=== PATIENT | male | born 1955 | race Caucasian/White ===

== ENCOUNTER 2016-06-20 18:17 | Emergency (ER) | payer OTHER ==
--- NOTE | ~2016-06-20 | CR170 ---
[facility]. [facility] A Service [facility] RADIOLOGY TEXT RESULTS PATIENT: SIMBA PEREZ LOCATION: SED : 55 UNIT #: [id number] AGE: [address]: THEODORA VALDES SEX: M ORDER DR: [id number] [place] [id number] E MR#: [id number] Acc #: [id number] NAME: SIMBA PEREZ. : 1955 SEX: M STUDY DATE/TIME: 06/20/2016 18:33 UNIT: SED ROOM: STUDY DESCRIPTION: CR Knee 2 Views Rt Attending Physician: Theodora Valdes Ordering Physician: Theodora Valdes Primary Care Physician: Alessio Franklin M.D. MEDICAL IMAGING REPORT This report is preliminary unless electronic signature is present. EXAM Right knee. DATE OF EXAM 06/20/2016 HISTORY 60-year-old male with right knee pain and swelling for 3-4 days. COMPARISON None. FINDINGS 2 views of the right knee demonstrate no acute fracture or dislocation. There is a small joint effusion. Mild degenerative changes in the medial compartment of patellofemoral joint. Soft tissues are unremarkable. IMPRESSION 1. No acute fracture or dislocation. 2. Small joint effusion. 3. 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 Dictated by... Manjinder Mckeon M.D. THIS IS AN ELECTRONICALLY VERIFIED REPORT Manjinder Mckeon M.D. at 06/21/2016 4:27 PM KANNAN/pako TD: 06/20/2016 22:21 JOB #: [id number] [facility] A Service [facility] RADIOLOGY TEXT RESULTS PATIENT: SIMBA PEREZ LOCATION: SED : 55 UNIT #: [id number] AGE: [address]: THEODORA VALDES SEX: M ORDER DR: MEDICAL IMAGING REPORT Page 1 of 1
--- NOTE | ~2016-06-20 | US85 ---
[facility] A Service [facility] RADIOLOGY TEXT RESULTS PATIENT: SIMBA PEREZ LOCATION: SED : 55 UNIT #: [id number] AGE: [address]: THEODORA VALDES SEX: M ORDER DR: [id number] [place] [id number] E MR#: [id number] Acc #: [id number] NAME: SIMBA PEREZ. : 1955 SEX: M STUDY DATE/TIME: 06/20/2016 19:29 UNIT: SED ROOM: STUDY DESCRIPTION: [facility] Attending Physician: Theodora Valdes Referring Physician: Staff Doctor Not On Ordering Physician: Billy Rodrigues M.D. Primary Care Physician: Alessio Franklin M.D. MEDICAL IMAGING REPORT This report is preliminary unless electronic signature is present. EXAM Right lower extremity venous duplex ultrasound. DATE OF EXAM 06/20/2016 HISTORY 60-year-old male with right lower extremity pain for 4 days. COMPARISON None. FINDINGS Real-time rogers-scale, color Doppler and spectral Doppler analysis of the right lower extremity deep venous system demonstrates normal venous waveforms with normal compressibility and augmentation throughout. No evidence of right lower extremity deep venous thrombosis. IMPRESSION Negative for right lower extremity DVT. Dictated by... Manjinder Mckeon M.D. THIS IS AN ELECTRONICALLY VERIFIED REPORT Manjinder Mckeon M.D. at 06/21/2016 4:27 PM KANNAN/pako TD: 06/20/2016 23:24 JOB #: [id number] [facility] A Service [facility] RADIOLOGY TEXT RESULTS PATIENT: SIMBA PEREZ LOCATION: SED : 55 UNIT #: [id number] AGE: [address]: THEODORA VALDES SEX: M ORDER DR: MEDICAL IMAGING REPORT Page 1 of 1
[~2016-06-20 18:17] MED LIST: ALBUTEROL INHALER; ALPRAZOLAM PO; BLOOD PRESSURE MED; BP MED; CLARITIN10 M2 PO; FLONASE ALLERG9.9 ML; KETOPROFEN PO; KLONOPIN1 MG PO; LANTUS100 U/ML SUBQ; MEDROL DOSEPAK4 MG PO; NEURONTIN100 MG PO; NORCO 10-325 TA1 TAB PO; PROVENTIL17 GM
[2016-06-20 18:26] LABS: BASOPHIL# 0.1 X10e3 (0-0.3); BASOPHIL% 0.6 % (0-2.5); EOSINOPHIL# 0.1 X10e3 (0-0.7); EOSINOPHIL% 0.7 % (0.0-7.0); HEMATOCRIT 37.8 % (38.0-50.0); HEMOGLOBIN 13.1 gm/dL (13.0-16.0); LYMPHOCYTE# 0.5 X10e3 (1.0-3.5); LYMPHOCYTE% 4.3 % (17.0-45.0); MEAN CELL VOLUME 88.7 FL (83-96); MEAN CORPUSCULAR HEMOGLOBIN 30.8 PG (28-34); MEAN CORPUSCULAR HGB CONC 34.7 g/dL (30-36); MEAN PLATELET VOLUME 7.4 FL (6.5-11.5); MONOCYTE% 9.3 % (3.0-12.0); NEUTROPHIL# 9.4 X10e3 (1.5-7.1); NEUTROPHIL% 85.1 % (40-75); PLATELET COUNT 155 X10e3 (140-420); RED BLOOD COUNT 4.26 X10e (3.90-5.60); RED CELL DISTRIBUTION WIDTH 14.4 % (11.0-15.5); WHITE BLOOD COUNT 11.1 X10e3 (4.0-10.5)
[2016-06-20 18:33] LABS: DIFF IND NO
[2016-06-20 18:41] LABS: INR 1.3
[2016-06-20 18:49] LABS: PARTIAL THROMBOPLASTIN TIME 30.7 SECONDS (25.6-38.1)
[2016-06-20 18:50] LABS: ALBUMIN SERUM 2.3 g/dL (3.5-5.0); BILIRUBIN, DIRECT 2.8 mg/dL (0.0-0.2); BILIRUBIN,INDIRECT 2.1 mg/dL (0.0-0.9); BILIRUBIN,TOTAL 4.9 mg/dL (0.2-2.0); BUN/CREATININE RATIO 18.88; CALCIUM SERUM 7.9 mg/dL (8.4-10.2); CREATININE SERUM 0.9 mg/dL (0.6-1.4); GLOM FILT RATE Estimated 92.5 mL/min (>60); POTASSIUM 3.9 mmol/L (3.5-5.1); PROTEIN TOTAL SERUM 7.3 g/dL (6.0-8.3)
[2016-06-20 18:58] LABS: URIC ACID 2.9 mg/dL (2.6-7.2)
== END 2016-06-20 20:18 | disposition home or self-care (01) ==
LOC: SED 18:17
PROVIDERS: Physician Assistant
DX: M25.561 Pain in right knee (principal); E11.9 Type 2 diabetes mellitus without complications; Z79.4 Long term (current) use of insulin
CPT/HCPCS: 29530; 73560; 80048; 80076; 84550; 85025; 85610; 85730; 93971; 99284

== ENCOUNTER → 2016-11-04 | Outpatient (CLI) | payer OTHER ==
--- NOTE | ~2016-11-04 | XA170 ---
[facility] A Service of [facility] RADIOLOGY TEXT RESULTS PATIENT: SIMBA PEREZ LOCATION: [facility] : 55 UNIT #: [id number] AGE: [address]: Ayden Chin MD SEX: M ORDER DR: [id number] [facility] [address] [place], [place] [address] [id number] MR#: [id number] Acc #: [id number] NAME: SIMBA PEREZ. : 1955 SEX: M STUDY DATE/TIME: 11/04/2016 14:40 UNIT: [facility] ROOM: STUDY DESCRIPTION: XA Paracentesis W Image Attending Physician: Ayden Chin III, M.D. Referring Physician: Ayden Chin III, M.D. Ordering Physician: Ayden Chin III, M.D. Primary Care Physician: Alessio Franklin M.D. MEDICAL IMAGING REPORT This report is preliminary unless electronic signature is present EXAM Ultrasound guided paracentesis INDICATION Ascites. PROCEDURE The risks, benefits, and alternatives to the procedure were explained to the patient, and signed, informed consent was obtained. Patient was placed supine on the stretcher. Preliminary ultrasound of the abdomen was performed which demonstrated large-volume ascites; this image was permanently saved. Overlying skin was marked, patient was prepped and draped in the usual sterile fashion. Time-out was performed, as per protocol. Skin and subcutaneous tissues were anesthetized with buffered lidocaine, Yueh catheter was advanced into the fluid with aspiration of serous material. Catheter was hooked to suction tubing and there was evacuation of 11.2 L of serous material. Catheter was removed and manual pressure was applied until hemostasis was obtained. IMPRESSION Technically successful ultrasound guided paracentesis with evacuation of 11.2 L of serous material. Ultrasound was used during the procedure and permanent images were saved. Dictated by... Lilliana Amato M.D. THIS IS AN ELECTRONICALLY VERIFIED REPORT Lilliana Amato M.D. at 11/05/2016 5:04 PM AFF/psc [facility] A Service of [facility] & [facility] RADIOLOGY TEXT RESULTS PATIENT: SIMBA PEREZ LOCATION: [facility] #: [id number] : 55 UNIT #: [id number] AGE: [address]: Ayden Chin MD SEX: M ORDER DR: TD: 11/05/2016 12:56 JOB #: [id number] MEDICAL IMAGING REPORT Page 1 of 1 COPY
[2016-11-04 14:43] LABS: INR 1.3; PARTIAL THROMBOPLASTIN TIME 29.9 SECONDS (23.5-31.3); PROTHROMBIN TIME (PATIENT) 13.8 SECONDS (10.0-11.7)
[2016-11-04 14:56] LABS: HEMATOCRIT 27.7 % (38.0-50.0); HEMOGLOBIN 10.2 gm/dL (13.0-16.0); MEAN CELL VOLUME 89.9 FL (83-96); MEAN CORPUSCULAR HGB CONC 36.7 g/dL (30-36); MEAN PLATELET VOLUME 6.4 FL (6.5-11.5); RED BLOOD COUNT 3.08 X10e (3.90-5.60); RED CELL DISTRIBUTION WIDTH 15.4 % (11.0-15.5); WHITE BLOOD COUNT 4.4 X10e3 (4.0-10.5)
== END | disposition home or self-care (01) ==
LOC: CIVR 13:43
PROVIDERS: Specialist
PROC: 0W9G3ZZ Drainage of Peritoneal Cavity, Percutaneous Approach (ICD-10-PCS; principal; 2016-11-04)
DX: K74.60 Unspecified cirrhosis of liver (principal); R18.8 Other ascites
CPT/HCPCS: 36415; 85027; 85610; 85730